=== PATIENT | female | born 2000 | race Two or more races ===

== ENCOUNTER 2023-11-16 16:03 | Outpatient (CLI) | payer OTHER | END 2023-11-16 16:07 | disposition home or self-care (01) | LOC: PRENATAL 16:03 | PROVIDERS: ATTEND Obstetrics & Gynecology Maternal & Fetal Medicine | DX: O35.3XX0 Maternal care for (suspected) damage to fetus from viral disease in mother, not applicable or unspecified (principal); O44.00 Complete placenta previa NOS or without hemorrhage, unspecified trimester; Z3A.21 21 weeks gestation of pregnancy ==

== ENCOUNTER 2024-02-09 08:19 | Outpatient (CLI) | payer OTHER ==
[~2024-02-09 08:19] MED LIST: FE C TABLET1 EACH PO; PRENATABS RX T1 EACH PO
== END 2024-02-09 08:20 | disposition home or self-care (01) ==
LOC: PRENATAL 08:19
PROVIDERS: ATTEND Obstetrics & Gynecology Maternal & Fetal Medicine
DX: O26.849 Uterine size-date discrepancy, unspecified trimester (principal); O36.8199 Decreased fetal movements, unspecified trimester, other fetus; Z3A.33 33 weeks gestation of pregnancy

== ENCOUNTER 2024-03-19 08:07 | Inpatient (IN) | payer OTHER ==
[~2024-03-19] VITALS: Ht 147.3 cm; Wt 3.2 kg
[2024-03-19] VITALS (7 sets, daily range): BP systolic 107–113; BP diastolic 57–81; O2SAT 100
[2024-03-19] MEDS ORDERED: RINGERS SOLUTION,LACTATED 1,000 ML IV SCH (08:30)
[2024-03-19 09:23] LABS: URINE APPEARANCE Cloudy; URINE BILIRRUBIN Negative (NEGATIVE); URINE BLOOD Negative; URINE COLOR Yellow; URINE GLUCOSE Negative (NEGATIVE); URINE KETONE Negative (NEGATIVE); URINE LEUKOCYTE Large; URINE NITRATE Negative; URINE PROTEIN Negative (NEGATIVE); URINE UROBILINOGEN 0.2 E.U./dl
[2024-03-19 09:27] LABS: URINE BACTERIA 2839.9 uL (0.0-1933); URINE EPITHELIAL CELLS 170.5 uL (0.0-38.8); URINE WBC 255.5 uL (0.0-23.2)
[2024-03-19 09:35] LABS: HEMATOCRIT 30.4 % (36.0-45.00); MEAN CELL VOLUME 79.4 fL (80.00-100.00); MEAN CORPUSCULAR HEMOGLOBIN 26.3 pg (27.00-32.0); MEAN CORPUSCULAR HGB CONC 33.1 g/dl (32.0-36.0); PLATELET COUNT 343 K/uL (150-450); RED BLOOD COUNT 3.83 M/uL (4.00-6.00)
[2024-03-19 09:36] LABS: RED CELL DISTRIBUTION WIDTH 20.2 % (11.5-14.5)
[2024-03-19 09:37] LABS: HEMOGLOBIN 10.1 g/dL (12.0-15.00)
[2024-03-19 09:54] LABS: URINE CAST 0.15 uL (0.0-1.40); URINE RBC 0.7 uL (0.0-20.8)
[2024-03-19] MEDS ORDERED: CEFAZOLIN SODIUM 1,000 MG VIAL IV SCH (12:00)
[2024-03-20 04:16] VITALS: BP 121/63
[2024-03-20 07:33] VITALS: BP 112/62
[2024-03-20 12:07] VITALS: BP 109/58
[2024-03-20 15:40] VITALS: BP 118/69; O2SAT 100
[2024-03-20 19:29] VITALS: BP 108/68
[2024-03-20 23:28] VITALS: BP 99/57
[2024-03-21 03:14] VITALS: BP 111/64
[2024-03-21 06:26] VITALS: BP 120/69; O2SAT 99
[2024-03-21 11:29] VITALS: BP 110/69; O2SAT 100
[2024-03-21 15:34] VITALS: BP 104/66
[2024-03-21 16:48] LABS: INR < 0.93; PARTIAL THROMBOPLASTIN TIME 28.9 SECONDS (22.0-34.0); PROTHROMBIN TIME 9.4 SECONDS (9.0-11.5)
[2024-03-21] MEDS ORDERED: OXYTOCIN 10 UNITS/ML VIAL IV ONE (18:45)
[2024-03-21] MEDS ORDERED: ERYTHROMYCIN BASE 1 GM TUBE OP ONE (18:45)
[2024-03-21] MEDS ORDERED: MEPERIDINE HCL/PF 50 MG/ML VIAL IM PRN (19:15)
[2024-03-21] MEDS ORDERED: PROMETHAZINE HCL 25 MG/ML AMPUL IM SCH (21:00)
[2024-03-21 22:36] VITALS: BP 115/74
[2024-03-22 02:11] VITALS: BP 109/67
[2024-03-22 08:00] VITALS: BP 123/78
[2024-03-22] MEDS ORDERED: OxyCODONE HCL/APAP UD (PERCOCET) PO PRN (09:15)
[2024-03-22 16:00] VITALS: BP 106/65
[2024-03-23 01:50] VITALS: BP 100/63
[2024-03-23 07:38] VITALS: BP 108/70
[2024-03-23 15:08] VITALS: BP 115/72
[2024-03-24 00:32] VITALS: BP 104/69
[2024-03-24 08:21] VITALS: BP 106/67
== END 2024-03-24 15:46 | disposition home or self-care (01) | DRG 788 ==
LOC: OBS/DEL 08:07 → OB/GYN 17:35 → LDR 17:35 → OBS/DEL 17:35 → LDR 03-20 18:19 → OB/GYN 03-21 20:05
PROVIDERS: ADMIT Obstetrics & Gynecology Obstetrics; ATTEND Obstetrics & Gynecology Obstetrics
PROC: 4A1HXCZ Monitoring of Products of Conception, Cardiac Rate, External Approach (ICD-10-PCS; 2024-03-19)
PROC: BY4FZZZ Ultrasonography of Third Trimester, Single Fetus (ICD-10-PCS; 2024-03-19)
PROC: 10D00Z1 Extraction of Products of Conception, Low, Open Approach (ICD-10-PCS; principal; 2024-03-21 20:00)
DX: O82 Encounter for cesarean delivery without indication (principal); Z3A.39 39 weeks gestation of pregnancy; Z37.0 Single live birth; Z20.822 Contact with and (suspected) exposure to COVID-19